=== PATIENT | female | born 1980 | race Two or more races ===

== ENCOUNTER 2021-04-16 11:15 | Inpatient (IN) | payer OTHER ==
[~2021-04-16] VITALS: Ht 165.1 cm; Wt 81.6 kg
== END 2021-04-24 13:25 | disposition home or self-care (01) | DRG 741 ==
LOC: O/R 04-23 06:00 → OB/GYN 04-23 10:30
PROVIDERS: ADMIT Obstetrics & Gynecology Gynecologic Oncology; ATTEND Obstetrics & Gynecology Gynecologic Oncology
PROC: 0UB74ZZ Excision of Bilateral Fallopian Tubes, Percutaneous Endoscopic Approach (ICD-10-PCS; 2021-04-23)
PROC: 07BC4ZZ Excision of Pelvis Lymphatic, Percutaneous Endoscopic Approach (ICD-10-PCS; 2021-04-23)
PROC: 0UT94ZZ Resection of Uterus, Percutaneous Endoscopic Approach (ICD-10-PCS; principal; 2021-04-23 10:30)
DX: D06.7 Carcinoma in situ of other parts of cervix (principal)